=== PATIENT | female | born 1955 | race Caucasian/White ===

== ENCOUNTER 2018-11-18 13:28 | Emergency (ER) | payer OTHER ==
[2018-11-18 14:04] LABS: ADD MAN DIFF? NO
[2018-11-18 14:08] LABS: WHITE BLOOD COUNT 15.8 10^3/ul (4.8-10.8)
[2018-11-18 14:08] LABS: BASOPHIL # 0.1 10^3/ul (0.0-0.1); BASOPHILS % 0.3 % (0.0-2.0); EOSINOPHILS # 0.1 10^3/ul (0.0-0.5); EOSINOPHILS % 0.5 % (0.0-7.0); HEMOGLOBIN 9.6 g/dl (12.0-16.0); LYMPHOCYTES # 1.5 10^3/ul (0.8-2.9); LYMPHOCYTES % 9.3 % (15.0-51.0); MEAN CORPUSCULAR HEMOGLOBIN 37.9 pg (29.0-33.0); MEAN CORPUSCULAR HGB CONC 34.3 g/dl (32.0-37.0); MEAN CORPUSCULAR VOLUME 110.7 fl (82.0-101.0); MEAN PLATELET VOLUME 10.1 fl (7.4-10.4); MONOCYTES % 6.4 % (0.0-11.0); NEUTROPHIL # 12.6 10^3/ul (1.6-7.5); NEUTROPHILS % 79.8 % (39.0-77.0); PLATELET COUNT 171 10^3/UL (140-415); RED BLOOD COUNT 2.53 10^6/ul (4.20-5.40); RED CELL DISTRIBUTION WIDTH 16.2 % (11.5-14.5)
[2018-11-18 14:25] LABS: ALANINE AMINOTRANSFERASE 30 IU/L (13-69); ALBUMIN 2.9 g/dl (3.3-4.9); ALBUMIN/GLOBULIN RATIO 0.65; ALKALINE PHOSPHATASE 183 IU/L (42-121); ANION GAP 10 (5-13); ASPARTATE AMINO TRANSFERASE 53 IU/L (15-46); BILIRUBIN,INDIRECT 4.8 mg/dl (0-1.1); BILIRUBIN,TOTAL 5.3 mg/dl (0.2-1.3); BLOOD UREA NITROGEN 50 mg/dl (7-20); CARBON DIOXIDE 24 mmol/L (21-31); CHLORIDE 93 mmol/L (97-110); Estimated GFR 33 mL/min (>60); GLUCOSE 169 mg/dl (70-220); SODIUM 127 mmol/L (135-144); TOTAL PROTEIN 7.3 g/dl (6.1-8.1)
[2018-11-18 14:27] LABS: POTASSIUM 5.4 mmol/L (3.5-5.1)
[2018-11-18 14:36] LABS: TROPONIN-I < 0.012 ng/ml (0.000-0.120)
[2018-11-18] MEDS: SOD CHLORIDE 0.9% 500 ML IV (15:06)
[2018-11-18 15:25] LABS: B-TYPE NATRIURETIC PEPTIDE 350 PG/ML (0-125)
[2018-11-18 15:33] LABS: FREE T4 (FREE THYROXINE) 2.49 ng/dl (0.78-2.44)
[2018-11-18 17:09] LABS: ADD UMIC NO; UR ASCORBIC ACID NEGATIVE (NEGATIVE); UR BILIRUBIN (Dip) NEGATIVE (NEGATIVE); UR BLOOD (Dip) NEGATIVE (NEGATIVE); UR CLARITY CLEAR (CLEAR); UR COLOR AMBER (YELLOW); UR GLUCOSE (Dip) NEGATIVE (NEGATIVE); UR KETONES (Dip) NEGATIVE (NEGATIVE); UR LEUKOCYTE ESTERASE (Dip) NEGATIVE Leu/ul (NEGATIVE); UR NITRITE (Dip) NEGATIVE (NEGATIVE); UR SPECIFIC GRAVITY (Dip) 1.011 (1.003-1.030); UR TOTAL PROTEIN (Dip) NEGATIVE (NEGATIVE); UR UROBILINOGEN (Dip) NEGATIVE (NEGATIVE)
== END 2018-11-18 17:18 | disposition home or self-care (01) ==
LOC: E/R 13:28
DX: E87.5 Hyperkalemia (principal); D72.829 Elevated white blood cell count, unspecified; D53.9 Nutritional anemia, unspecified; R17 Unspecified jaundice; E88.09 Other disorders of plasma-protein metabolism, not elsewhere classified; E87.1 Hypo-osmolality and hyponatremia; E03.9 Hypothyroidism, unspecified
CPT/HCPCS: 36415; 71045; 80053; 81003; 83880; 84439; 84443; 84484; 85025; 93005; 96360; 96361; 99285-25

== ENCOUNTER 2018-11-28 20:38 | Inpatient (IN) | payer OTHER ==
[2018-11-28 21:27] LABS: ADD MAN DIFF? NO
[2018-11-28 21:29] LABS: WHITE BLOOD COUNT 16.4 10^3/ul (4.8-10.8)
[2018-11-28 21:29] LABS: BASOPHILS % 0.2 % (0.0-2.0); EOSINOPHILS # 0.1 10^3/ul (0.0-0.5); EOSINOPHILS % 0.6 % (0.0-7.0); HEMATOCRIT 27.1 % (37.0-47.0); HEMOGLOBIN 9.6 g/dl (12.0-16.0); LYMPHOCYTES # 1.4 10^3/ul (0.8-2.9); LYMPHOCYTES % 8.7 % (15.0-51.0); MEAN CORPUSCULAR HGB CONC 35.4 g/dl (32.0-37.0); MEAN CORPUSCULAR VOLUME 112.9 fl (82.0-101.0); MEAN PLATELET VOLUME 10.7 fl (7.4-10.4); MONOCYTE # 1.2 10^3/ul (0.3-0.9); MONOCYTES % 7.6 % (0.0-11.0); NEUTROPHIL # 13.2 10^3/ul (1.6-7.5); NEUTROPHILS % 80.2 % (39.0-77.0); PLATELET COUNT 147 10^3/UL (140-415); RED CELL DISTRIBUTION WIDTH 17.4 % (11.5-14.5)
[2018-11-28 21:47] LABS: INR 1.61; PROTIME 19.2 Sec (11.9-14.9); PT RATIO 1.5
[2018-11-28 21:48] LABS: PARTIAL THROMBOPLASTIN TIME 33.3 Sec (23.0-35.0)
[2018-11-28 21:50] LABS: ALANINE AMINOTRANSFERASE 30 IU/L (13-69); ALBUMIN 2.7 g/dl (3.3-4.9); ALKALINE PHOSPHATASE 206 IU/L (42-121); ANION GAP 10 (5-13); ASPARTATE AMINO TRANSFERASE 51 IU/L (15-46); BILIRUBIN,INDIRECT 3.9 mg/dl (0-1.1); BILIRUBIN,TOTAL 4.5 mg/dl (0.2-1.3); BLOOD UREA NITROGEN 65 mg/dl (7-20); CALCIUM 8.3 mg/dl (8.4-10.2); CARBON DIOXIDE 19 mmol/L (21-31); CHLORIDE 97 mmol/L (97-110); CREATININE 1.59 mg/dl (0.44-1.00); Estimated GFR 33 mL/min (>60); GLUCOSE 165 mg/dl (70-220); LIPASE 246 U/L (23-300); POTASSIUM 5.1 mmol/L (3.5-5.1); SODIUM 126 mmol/L (135-144); TOTAL PROTEIN 7.2 g/dl (6.1-8.1)
[2018-11-28 22:02] LABS: B-TYPE NATRIURETIC PEPTIDE 406 PG/ML (0-125); TROPONIN-I < 0.012 ng/ml (0.000-0.120)
[2018-11-28] MEDS: PIPER-TAZO 3.375 GM IV (PMX) 100 ML IVPB (23:23)
[2018-11-28] MEDS: VANCOMYCIN 1 GM (PMX) 250 ML IVPB (23:46)
[2018-11-29] MEDS ORDERED: NACL 0.9% 3 ML SYG IV
[2018-11-29 05:46] LABS: ADD MAN DIFF? NO
[2018-11-29 06:10] LABS: BASOPHILS % 0.3 % (0.0-2.0); EOSINOPHILS # 0.1 10^3/ul (0.0-0.5); EOSINOPHILS % 0.7 % (0.0-7.0); HEMATOCRIT 23.9 % (37.0-47.0); HEMOGLOBIN 8.5 g/dl (12.0-16.0); LYMPHOCYTES # 1.5 10^3/ul (0.8-2.9); LYMPHOCYTES % 11.2 % (15.0-51.0); MEAN CORPUSCULAR HEMOGLOBIN 39.7 pg (29.0-33.0); MEAN CORPUSCULAR HGB CONC 35.6 g/dl (32.0-37.0); MEAN CORPUSCULAR VOLUME 111.7 fl (82.0-101.0); MEAN PLATELET VOLUME 10.7 fl (7.4-10.4); MONOCYTES % 7.2 % (0.0-11.0); NEUTROPHIL # 10.7 10^3/ul (1.6-7.5); NEUTROPHILS % 78.8 % (39.0-77.0); PLATELET COUNT 107 10^3/UL (140-415); RED BLOOD COUNT 2.14 10^6/ul (4.20-5.40); RED CELL DISTRIBUTION WIDTH 17.3 % (11.5-14.5)
[2018-11-29 06:10] LABS: WHITE BLOOD COUNT 13.5 10^3/ul (4.8-10.8)
[2018-11-29 06:29] LABS: ANION GAP 9 (5-13); BLOOD UREA NITROGEN 70 mg/dl (7-20); CALCIUM 8.3 mg/dl (8.4-10.2); CARBON DIOXIDE 21 mmol/L (21-31); CHLORIDE 99 mmol/L (97-110); Estimated GFR 35 mL/min (>60); GLUCOSE 107 mg/dl (70-220); SODIUM 129 mmol/L (135-144)
[2018-11-29 06:31] LABS: HEMOGLOBIN A1C 4.6 % (0-5.9)
[2018-11-29 06:46] LABS: T4 (THYROXINE) 5.8 ug/dl (5.5-11.0)
[2018-11-29 06:48] LABS: FREE THYROXINE INDEX (Calc) 3.77 ug/ml (0.65-3.89); T3 UPTAKE > 65.0 % (23.5-40.5)
[2018-11-29] MEDS: LEVOTHYROXINE 125 MCG TAB PO (07:34)
[2018-11-29] MEDS: ACYCLOVIR 800 MG TAB PO ×5 (08:26→21:25)
[2018-11-29] MEDS: FUROSEMIDE 40 MG TAB PO (08:26)
[2018-11-29] MEDS: FAMOTIDINE 20 MG TAB PO ×3 (08:26→21:25)
[2018-11-29] MEDS: SODIUM POLYSTYRENE 15 GM KIT (POWDER + SORBITOL) PO (17:06)
[2018-11-29] MEDS: PHYTONADIONE 10 MG/ML INJ SC (17:06)
[2018-11-29] MEDS: LACTULOSE 30ML CUP PO (21:25)
[2018-11-30] MEDS: LEVOTHYROXINE 125 MCG TAB PO (06:32)
[2018-11-30 06:45] LABS: ADD MAN DIFF? NO
[2018-11-30 06:55] LABS: BASOPHILS % 0.4 % (0.0-2.0); EOSINOPHILS # 0.1 10^3/ul (0.0-0.5); HEMATOCRIT 23.1 % (37.0-47.0); HEMOGLOBIN 7.9 g/dl (12.0-16.0); LYMPHOCYTES # 1.2 10^3/ul (0.8-2.9); LYMPHOCYTES % 13.9 % (15.0-51.0); MEAN CORPUSCULAR HGB CONC 34.2 g/dl (32.0-37.0); MEAN CORPUSCULAR VOLUME 111.1 fl (82.0-101.0); MEAN PLATELET VOLUME 10.7 fl (7.4-10.4); MONOCYTE # 0.9 10^3/ul (0.3-0.9); MONOCYTES % 10.4 % (0.0-11.0); NEUTROPHILS % 72.4 % (39.0-77.0); PLATELET COUNT 100 10^3/UL (140-415); RED BLOOD COUNT 2.08 10^6/ul (4.20-5.40); RED CELL DISTRIBUTION WIDTH 17.1 % (11.5-14.5)
[2018-11-30 06:55] LABS: WHITE BLOOD COUNT 8.3 10^3/ul (4.8-10.8)
[2018-11-30 07:23] LABS: ANION GAP 9 (5-13); BLOOD UREA NITROGEN 67 mg/dl (7-20); CALCIUM 8.3 mg/dl (8.4-10.2); CARBON DIOXIDE 21 mmol/L (21-31); CHLORIDE 102 mmol/L (97-110); CREATININE 1.64 mg/dl (0.44-1.00); Estimated GFR 32 mL/min (>60); GLUCOSE 138 mg/dl (70-220); SODIUM 132 mmol/L (135-144)
[2018-11-30 07:52] LABS: POTASSIUM 2.9 mmol/L (3.5-5.1)
[2018-11-30] MEDS: FAMOTIDINE 20 MG TAB PO ×2 (08:48→22:14)
[2018-11-30] MEDS: LACTULOSE 30ML CUP PO ×2 (08:48→22:14)
[2018-11-30] MEDS: POTASSIUM CHLORIDE (SR) 20 MEQ TAB PO ×2 (08:48→22:14)
[2018-11-30] MEDS: PHYTONADIONE 10 MG/ML INJ SC (08:49)
[2018-11-30] MEDS: FUROSEMIDE 40 MG TAB PO (08:54)
[2018-11-30] MEDS: ACYCLOVIR 800 MG TAB PO ×5 (09:00→22:14)
[2018-11-30] MEDS: LIDOCAINE 1% (MPF) 5 ML VIAL (11:48)
[2018-11-30 12:41] LABS: FLD RBC 0 /uL; FLD WBC 174 /cmm
[2018-11-30 13:14] LABS: FLD TYPE PARACENTHESIS
[2018-11-30 13:14] LABS: FLD CLARITY SLIGHTLY HAZY; FLD COLOR YELLOW
[2018-11-30 13:48] LABS: PATH REVIEW? YES
[2018-11-30] MEDS: ALBUMIN HUMAN 25% 100 ML IV (18:03)
[2018-12-01] MEDS: ALBUMIN HUMAN 25% 100 ML IV ×2 (02:44→08:57)
[2018-12-01] MEDS: LEVOTHYROXINE 125 MCG TAB PO (06:04)
[2018-12-01 06:36] LABS: URIC ACID 12.4 mg/dl (3.1-7.9)
[2018-12-01 06:39] LABS: CREATINE KINASE < 20 IU/L (23-200)
[2018-12-01] MEDS: LACTULOSE 30ML CUP PO (08:54)
[2018-12-01] MEDS: ACYCLOVIR 800 MG TAB PO (08:57)
[2018-12-01] MEDS: PHYTONADIONE 10 MG/ML INJ SC (08:57)
[2018-12-01] MEDS: FAMOTIDINE 20 MG TAB PO (08:57)
[2018-12-01 11:02] LABS: ANION GAP 10 (5-13); BLOOD UREA NITROGEN 65 mg/dl (7-20); CALCIUM 8.6 mg/dl (8.4-10.2); CARBON DIOXIDE 21 mmol/L (21-31); CHLORIDE 104 mmol/L (97-110); CREATININE 1.64 mg/dl (0.44-1.00); Estimated GFR 32 mL/min (>60); GLUCOSE 162 mg/dl (70-220); POTASSIUM 3.4 mmol/L (3.5-5.1); SODIUM 135 mmol/L (135-144)
== END 2018-12-01 11:00 | disposition home health service (06) | DRG 433 ==
LOC: 6WM 23:12 → E/R 20:38
PROC: 0W9G3ZZ Drainage of Peritoneal Cavity, Percutaneous Approach (ICD-10-PCS; principal; 2018-11-30)
DX: K74.69 Other cirrhosis of liver (principal); R18.8 Other ascites; D68.9 Coagulation defect, unspecified; N17.9 Acute kidney failure, unspecified; D69.6 Thrombocytopenia, unspecified; E87.5 Hyperkalemia; N18.3 Chronic kidney disease, stage 3 (moderate); D64.9 Anemia, unspecified; E03.9 Hypothyroidism, unspecified
CPT/HCPCS: 36415; 71045; 76705; 80048; 80053; 82550; 83036; 83690; 83880; 84436; 84479; 84484; 84560; 85025; 85610; 85730; 87040-91; 87070; 87102; 87116; 89051; 93005; 99217; 99285-25